=== PATIENT | female | born 1935 | race Native Hawaiian/Other Pacific Islander ===

== ENCOUNTER 2023-01-06 20:45 | Emergency (ER) | payer OTHER ==
[~2023-01-06] VITALS: Ht 175.3 cm; Wt 72.6 kg
[2023-01-06 20:58] VITALS: TEMP 98.7
[2023-01-06 21:40] LABS: PLATELET COUNT 244 K/uL (152-353)
[2023-01-06 21:49] LABS: POTASSIUM 4.4 mmol/L (3.6-5.2)
[2023-01-07] MEDS ORDERED: TYLENOL325 MG PO (06:27)
[2023-01-07] MEDS ORDERED: LORA0.5T17 PO (06:27)
[2023-01-07] MEDS ORDERED: VITAMIN D1000 UNI1 PO (06:28)
[2023-01-07] MEDS ORDERED: [UNRECOGNIZED DRUG - OTHER] PO (06:29)
[2023-01-07] MEDS ORDERED: DONE5TAB PO (06:30)
[2023-01-07] MEDS ORDERED: ELIQUIS5 MG PO (06:30)
[2023-01-07] MEDS ORDERED: FLUOXETINE10 MG PO (06:31)
[2023-01-07] MEDS ORDERED: METO25TA2 PO (06:32)
[2023-01-07] MEDS ORDERED: MICRO GUARD2 % TOP (06:33)
[2023-01-07] MEDS ORDERED: MIRTAZAPINE PO (06:34)
[2023-01-07] MEDS ORDERED: OMEPRAZOLE DR40 MG PO (06:34)
[2023-01-07] MEDS ORDERED: PHENYTOIN EX100 MG PO (06:35)
[2023-01-07] MEDS ORDERED: QUETIAPINE50 MG PO (06:36)
== END 2023-01-07 00:30 | disposition other institution (70) ==
LOC: ED 20:45
PROVIDERS: Family Medicine
DX: F29 Unspecified psychosis not due to a substance or known physiological condition (principal); Z02.79 Encounter for issue of other medical certificate
CPT/HCPCS: 36415; 80053; 81000; 85027; 87077; 87086; 87088; 87186; 87635; 93005; 99283; U0003